=== PATIENT | male | born 1980 | race American Indian/Alaskan Native ===

== ENCOUNTER 2018-02-02 13:36 | Emergency (ER) | payer OTHER, MEDICAID ==
[2018-02-02 13:41] VITALS: BP 128/77
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
[2018-02-02] MEDS ORDERED: MOTRIN PO ONE (14:46)
[2018-02-02] MEDS ORDERED: FLEXERIL PO ONE (14:46)
== END 2018-02-02 16:11 | disposition home or self-care (01) ==
LOC: ED 13:36
DX: S16.1XXA Strain of muscle, fascia and tendon at neck level, initial encounter (principal); M54.5 Low back pain; F17.200 Nicotine dependence, unspecified, uncomplicated; E78.00 Pure hypercholesterolemia, unspecified; V89.2XXA Person injured in unspecified motor-vehicle accident, traffic, initial encounter; Y93.89 Activity, other specified; Y92.488 Other paved roadways as the place of occurrence of the external cause; Y99.8 Other external cause status
CPT/HCPCS: 99282